=== PATIENT | male | born 1990 | race Caucasian/White ===

== ENCOUNTER 2016-08-09 23:13 | Emergency (ER) | payer OTHER ==
[~2016-08-09] VITALS: Ht 167.6 cm; Wt 72.7 kg
[2016-08-09 23:18] VITALS: TEMP 37.1; Ht 167.6 cm; Wt 72.7 kg
[2016-08-10] MEDS ORDERED: KETOROLAC TROMETHAMINE 30 MG/ML VIAL IV STA (00:05)
--- NOTE | 2016-08-10 00:08 | EMERGENCY ROOM VISIT NOTE ---
History Report prepared by William: Aidel Scott Under the Supervision of: Dr. Elvia John D.O. First contact with patient: 23:40 Chief Complaint: FEVER Stated Complaint: FEVER History of Present Illness The patient is a 25 year old male who presents to the Emergency Room with complaints of a persistent fever beginning about 6 hours ago. He notes his cat bit and scratched him on the top of his head before the fever began. He notes also having a headache, but denies having any neck pain or abdominal pain. He has taken Tylenol for his fever. He has been able to eat and drink today without any issues. The patient denies having any other medical problems, and believes he is up to date on his tetanus shot. Source of History: patient Onset: about 6 hours ago Position: other (global) Quality: other (fever) Timing: other (persistent) Associated Symptoms: + headache, No abdominal pain, No neck pain Review of Systems See HPI for pertinent positives & negatives. A total of 10 systems reviewed and were otherwise negative. Past Medical & Surgical No known medical problems. Family History No pertinent family history stated. Social History Smoking Status: Never Smoker Marital Status: in relationship Occupation Status: employed Current/Historical Medications Scheduled Amoxicillin & Pot Clavulanate (Augmentin 875-125 mg), 1 TAB PO BID Allergies Coded Allergies: No Known Allergies (Unverified , 08/09/16) Physical Exam Vital Signs Date Time Temp Pulse Resp B/P Pulse Ox O2 Delivery O2 Flow Rate FiO2 08/10/16 01:56 78 18 142/78 98 Room Air 08/10/16 00:25 98 Room Air 08/09/16 23:18 37.1 88 18 143/85 96 Room Air Physical Exam HEENT: Head - 3 puncture wounds on the top of the head with pus coming out. Pupils are equal, round, and reactive to light. Extraocular eye muscles are intact, and sclera are anicteric. Nose - moist nasal mucosa without discharge. Mouth - moist buccal mucosa. Oropharynx is nonerythematous and there is no tonsillar exudate or edema noted. Neck: Supple; no JVD, nuchal rigidity, cervical lymphadenopathy. Heart: Regular rate and rhythm. There is a normal S1 and S2 with no murmurs, clicks, or gallops appreciated. Lungs: Clear to auscultation bilaterally with no wheezes, rales, or rhonchi. Abdomen: Soft, completely nontender, nondistended, with good bowel sounds. There are no palpable pulsatile masses or hepatosplenomegaly. There is no guarding, rigidity, or rebound noted. Extremities: No evidence of cyanosis, clubbing, or edema. There are easily palpable peripheral pulses. Skin: warm and dry with good turgor and no rashes. Medical Decision & Procedures ER Provider Diagnostic Interpretation: CHEST X-RAY: Unremarkable. No pulmonary infiltrate or consolidations. Laboratory Results 08/10/16 00:20 Red Blood Count 4.89, Mean Corpuscular Volume 85.9, Mean Corpuscular Hemoglobin 29.7, Mean Corpuscular Hemoglobin Concent 34.5, Mean Platelet Volume 9.7, Neutrophils (%) (Auto) 54.2, Lymphocytes (%) (Auto) 28.4, Monocytes (%) (Auto) 14.6, Eosinophils (%) (Auto) 1.8, Basophils (%) (Auto) 0.5, Neutrophils # (Auto ) 4.73, Lymphocytes # (Auto) 2.48, Monocytes # (Auto) 1.27, Eosinophils # (Auto ) 0.16, Basophils # (Auto) 0.04 08/10/16 00:20 Test 08/10/16 00:20 White Blood Count 8.72 K/uL (4.8-10.8) Red Blood Count 4.89 M/uL (4.7-6.1) Hemoglobin 14.5 g/dL (14.0-18.0) Hematocrit 42.0 % (42-52) Mean Corpuscular Volume 85.9 fL (80-100) Mean Corpuscular Hemoglobin 29.7 pg (25-34) Mean Corpuscular Hemoglobin Concent 34.5 g/dl (32-36) Platelet Count 245 K/uL (130-400) Mean Platelet Volume 9.7 fL (7.4-10.4) Neutrophils (%) (Auto) 54.2 % Lymphocytes (%) (Auto) 28.4 % Monocytes (%) (Auto) 14.6 % Eosinophils (%) (Auto) 1.8 % Basophils (%) (Auto) 0.5 % Neutrophils # (Auto) 4.73 K/uL (1.4-6.5) Lymphocytes # (Auto) 2.48 K/uL (1.2-3.4) Monocytes # (Auto) 1.27 K/uL (0.11-0.59) Eosinophils # (Auto) 0.16 K/uL (0-0.5) Basophils # (Auto) 0.04 K/uL (0-0.2) RDW Standard Deviation 38.0 fL (36.4-46.3) RDW Coefficient of Variation 12.1 % (11.5-14.5) Immature Granulocyte % (Auto) 0.5 % Immature Granulocyte # (Auto) 0.04 K/uL (0.00-0.02) Anion Gap 11.0 mmol/L (3-11) Est Creatinine Clear Calc Drug Dose 100.1 ml/min Estimated GFR () 119.0 Estimated GFR (Non- 102.7 BUN/Creatinine Ratio 20.2 (10-20) Calcium Level 8.9 mg/dl (8.5-10.1) Total Bilirubin 0.2 mg/dl (0.2-1) Aspartate Amino Transf (AST/SGOT) 33 U/L (15-37) Alanine Aminotransferase (ALT/SGPT) 86 U/L (12-78) Alkaline Phosphatase 68 U/L (45-117) Total Protein 7.8 gm/dl (6.4-8.2) Albumin 4.3 gm/dl (3.4-5.0) Globulin 3.5 gm/dl (2.5-4.0) Albumin/Globulin Ratio 1.2 (0.9-2) Laboratory results per my review. Medications Administered Medications (Trade) Dose Ordered Sig/Daysi Route Start Time Stop Time Status Last Admin Dose Admin Ketorolac Tromethamine (Toradol Inj) 30 mg NOW STAT IV 08/10/16 00:05 08/10/16 00:07 DC 08/10/16 00:32 30 MG Amoxicillin/ Clavulanate Potassium (Augmentin Tab) 875 mg ONE ONCE PO 08/10/16 02:15 08/10/16 02:16 DC 08/10/16 02:08 875 MG Procedure Oral Augmentin ED Course 0000: Past medical records reviewed. The patient was evaluated in room C5. A complete history and physical exam was performed. A septic protocol was performed. A culture was taken from the wound on the top of the head. 0005: Ordered Toradol 30 mg IV. 0204: I reassessed the patient, and he is doing well. I will give him antibiotics. 0215: Ordered Augmentin Tab 875 mg PO. 0220: Upon reevaluation, the patient is doing well. I discussed findings and results with the patient. He verbalized agreement of the treatment plan. The patient was discharged home. Medical Decision The patient is a 25 year old male who presents to the Emergency Room with complaints of a persistent fever beginning about 6 hours ago. Differentials include sepsis, wound infection, cellulitis, bacteremia, and cat scratch fever. Laboratory Interpretations: No leukocytosis; stable H&H; BUN 20; creatinine 1; glucose 109; normal LFTs. Lactic acid was normal. This is a 25-year-old male patient who suffered a Bite to the top of the scalp. There was pus noted coming from the wound. This was cultured. The patient has no signs of sepsis. I will start him on oral Augmentin. The patient was instructed to return to the emergency department if he had any worsening symptoms. Impression Primary Impression: Infected cat bite Scribe Attestation The scribe's documentation has been prepared under my direction and personally reviewed by me in its entirety. I confirm that the note above accurately reflects all work, treatment, procedures, and medical decision making performed by me. Departure Information Dispostion Home / Self-Care Prescriptions Amoxicillin & Pot Clavulanate (Augmentin 875-125 mg) 1 Tab Tab 1 TAB PO BID, #20 TAB Prov: Elvia John D.O. 08/10/16 Referrals No Doctor, Assigned (PCP) Patient Instructions ED Wound Care, [facility] Additional Instructions Rest with your head elevated Take Augmentin every 12 hours Return to the ER for worsening symptoms Keep the wounds clean with soap and water. Cover with antibiotic ointment
[2016-08-10 00:25] VITALS: O2SAT 98
[2016-08-10 00:36] LABS: BASO % 0.5 %; BASO ABS # 0.04 K/uL (0-0.2); COMPLETE YES; EOS % 1.8 %; IG% 0.5 %; LYMPH % 28.4 %; LYMPH ABS # 2.48 K/uL (1.2-3.4); MEAN CELL VOLUME 85.9 fL (80-100); MEAN CORPUSCULAR HEMOGLOBIN 29.7 pg (25-34); MEAN CORPUSCULAR HGB CONC 34.5 g/dl (32-36); MEAN PLATELET VOLUME 9.7 fL (7.4-10.4); MONO % 14.6 %; NEUT % 54.2 %; PLATELET COUNT 245 K/uL (130-400); RED BLOOD COUNT 4.89 M/uL (4.7-6.1); WHITE BLOOD COUNT 8.72 K/uL (4.8-10.8)
[2016-08-10 01:11] LABS: BUN/CREATININE RATIO 20.2 (10-20); CALCIUM 8.9 mg/dl (8.5-10.1)
[2016-08-10 01:14] LABS: ALB/GLOB RATIO 1.2 (0.9-2)
[2016-08-10 01:56] VITALS: BP 142/78; PULSE 78; O2SAT 98
[2016-08-10] MEDS ORDERED: AMOX875T PO (02:11)
[2016-08-10] MEDS ORDERED: AMOXICILLIN/CLAVULANATE TAB 875 MG TAB PO ONE (02:15)
--- NOTE | 2016-08-10 07:41 | DIAGNOSTIC IMAGING REPORT ---
CHEST ONE VIEW PORTABLE CLINICAL HISTORY: Sepsis dyspnea COMPARISON STUDY: No previous studies for comparison. FINDINGS: The bones soft tissues and hemidiaphragms are normal. The cardiomediastinal silhouette is normal. The lungs are clear. The pulmonary vasculature is normal. IMPRESSION: Negative chest. Electronically signed by: Mitchell Rosa M.D. 08/10/2016 7:40 AM Dictated Date/Time: 08/10/2016 7:39 AM
--- NOTE | 2016-08-13 14:28 | Pharmacy Progress Note ---
ED Pharmacist Culture FollowUp Date of Service: Aug 13, 2016. Surface wound culture from 08/10/16 is growing pasteurella multocida. Patient was dx w/ cat bite infection and discharged on Augmentin 875mg PO BID x 10 days. This abx will cover this organism. Therefore no action required.
== END 2016-08-10 02:20 | disposition home or self-care (01) ==
LOC: C.EDB 23:15 → C.EDC 08-10 02:20
DX: S01.95XA Open bite of unspecified part of head, initial encounter (principal); S00.91XA Abrasion of unspecified part of head, initial encounter; W55.01XA Bitten by cat, initial encounter; B99.9 Unspecified infectious disease